=== PATIENT | female | born 1980 | race Caucasian/White ===

== ENCOUNTER 2023-11-22 07:31 | Day surgery (SDC) | payer BC, SELFPAY ==
[2023-11-22] VITALS (18 sets, daily range): BP systolic 90–114; BP diastolic 48–70; PULSE 68–86; RESP 15–20; TEMP 36.2–36.7; O2SAT 94–98; BMI 32.7
[2023-11-22] MEDS: LACTATED RINGERS 1000 ML 1,000 ML 100 ML IV (08:00)
[2023-11-22] MEDS: SODIUM CHLORIDE 0.9 % (FLUSH) 10 ML SYRINGE IVF (08:00)
--- NOTE | 2023-11-22 08:20 | SUR.PREOP ---
TIME?OUT:?0820 PT/RN/MDA?VERIFICATION?OF?SURGICAL?SITE,?PROCEDURE,?AND?CONSENT OBTAINED?PRIOR?TO?INVASIVE?PROCEDURE.
[2023-11-22] MEDS: fentaNYL 100 MCG/2 ML inj IVP (08:30)
[2023-11-22] MEDS: MIDAZOLAM HCL 1 MG/ML inj IVP (08:30)
[2023-11-22] MEDS: CEFAZOLIN 2 GM INJ IVP (08:50)
--- NOTE | 2023-11-22 09:18 | W.PM.NB ---
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 Images saved: Yes Medications given in 5ml increments after negative aspiration: Ropivicaine %: 0.5 mL: 25 Needle gauge: 20 Patient tolerated procedure well: Yes Block Charges Block Charge (with Pro Fee): Sciatic Nerve Use of Ultrasound Machine for Block: Yes- US Guidance/pain block
--- NOTE | 2023-11-22 10:25 | W.ANESCHARGE ---
Anesthesia Charges Start Date/Time Anesthesia Start Date: 11/22/23 Anesthesia Start Time: 08:42 Stop Date/Time Anesthesia Stop Date: 11/22/23 Anesthesia Stop Time: 10:27
--- NOTE | 2023-11-22 10:31 | P.GSOP_ITS ---
Operative Note Date of procedure: 11/22/23 Pre-op diagnosis: 1. peroneal tendon tear left 2. lateral ankle instability left Post-op diagnosis: 1. peroneal tendon tear left 2. lateral ankle instability left Type of Procedure: 1. peroneal tendon repair left 2. lateral ankle stabilization left Indications: patient sustained a left ankle injury resulting and instability of her left ankle and a peroneal tendon tear. She has not improved with nonsurgical care and wishes to proceed with surgery. I reviewed the procedure, recovery, expectation potential complications. These include but are not limited to: Poor wound healing, infection, continued pain, potential need for future surgery, deep venous thrombosis, pulmonary embolism and possible . All questions answered written consent was obtained. Procedure Description: After discussing the risks and benefits of the procedure, the patient signed informed consent.? The operative site was marked. a popliteal block was performed by Anesthesia. patient was brought to the operating room and placed on the operating table in supine position.? The patient was then given Spinal block and sedation by anesthesia.?? The operative site was then prepped and draped in the usual sterile fashion.? A time-out was then performed. Left leg was exsanguinated with Esmarch and the thigh tourniquet inflated to 300 mm Hg. Linear incision was made just anterior to the peroneal tendons along the distal fibula, coursing toward the 4th/5th metatarsal base area. Incision was carried down through skin subcutaneous tissues. Peroneal tendon sheath was then incised and opened. Peroneus brevis tendon had a linear tear starting at the tip of the fibula coursing distally 2 cm. The tendon was flattened proximal to this. Tendon was debrided and retubularized with FiberWire. peroneus longus tendon was normal in appearance. Inflamed synovial tissue excised. Wound was thoroughly irrigated normal sterile saline. Peroneal tendon sheath and peroneal retinaculum repaired with running 3-0 Vicryl. Stress was applied to the ankle and there was laxity with anterior drawer and slight laxity with talar tilt. Incision was made along the anterior and distal fibula intra- articular. The ligamentous attachment on the fibula and the periosteum reflected. The distal part of the fibula was debrided with a rongeur to roughen the area and remove small ossicle. Area was irrigated with normal sterile saline. FiberTak anchor x2 were applied into the fibula. Suture was then passed through the ligament remnants and the deep fascia. Both were then advanced onto the fibula and tensioned. Periosteum was then brought over the top of the repair and sutured the deep fascia. With 0 Vicryl. subcutaneous tissues reapproximated with 4-0 Monocryl and skin closed with 4-0 Prolene. Sterile dressing was applied. Tourniquet was released and normal capillary fill time returned all digits. Well-padded plaster posterior splint applied with the foot and neutral and slightly everted. The patient was then woken and transported to the recovery area in stable condition. The patient tolerated the procedure well. She is given both written and verbal postoperative instructions. She is nonweightbearing. She will follow up in clinic in 2 days. She has been oxycodone for pain. She will start aspirin therapy tomorrow. Findings: Complications: None apparent Implants: [employer] FiberTak anchors x2 Anesthesia: regional and spinal Surgeon: Tadeo Preston DPM Estimated blood loss (mL): 2 Condition: stable Disposition: PACU
--- NOTE | 2023-11-22 10:57 | SUR.PHASEI ---
patient met discharge criteria per anesthesia
[2023-11-22] MEDS: OxyCODONE/APAP 5-325 TABLET PO ×2 (11:35→12:25)
--- NOTE | 2023-11-22 13:17 | SUR.PHASEII ---
Gave second dose of narcotic pain medication at 12:30. Patient rates pain a 4-5 at 1300. Waiting to talk to Dr. Preston regarding lateral ankle pain.
[2023-11-22] MEDS: KETOROLAC 30 MG/ML inj IVP (13:21)
== END 2023-11-22 13:35 | disposition home or self-care (01) ==
LOC: OR 07:32
PROVIDERS: PCP Student in an Organized Health Care Education/Training Program; Visit Provider Podiatrist
PROC: (CPT 27675; principal; 2023-11-22 08:30)
DX: S86.312A Strain of muscle(s) and tendon(s) of peroneal muscle group at lower leg level, left leg, initial encounter (principal); M25.372 Other instability, left ankle; G89.18 Other acute postprocedural pain
CPT/HCPCS: 27870; 27675; 01480; 64445; 76942; A4580; A9270; J0690; J1100; J1200; J1885; J2250; J2371; J2405; J2704; J2795; J3010; J7120

== ENCOUNTER 2024-03-10 10:45 | Outpatient (RCR) | payer BC, SELFPAY | END 2024-07-08 23:59 | disposition home or self-care (01) | PROVIDERS: PCP Student in an Organized Health Care Education/Training Program; Visit Provider Podiatrist | DX: S86.312A Strain of muscle(s) and tendon(s) of peroneal muscle group at lower leg level, left leg, initial encounter (principal); M25.372 Other instability, left ankle; Z51.89 Encounter for other specified aftercare | CPT/HCPCS: 97110; 97161 ==

== ENCOUNTER 2024-05-02 08:45 | Outpatient (RCR) | payer BC, SELFPAY | END 2024-05-02 09:12 | disposition home or self-care (01) | PROVIDERS: PCP Student in an Organized Health Care Education/Training Program; Visit Provider Orthopaedic Surgery | DX: M75.41 Impingement syndrome of right shoulder (principal); M75.51 Bursitis of right shoulder; Z51.89 Encounter for other specified aftercare | CPT/HCPCS: 97110; 97161 ==